=== PATIENT | female | born 1940 | race African-American/Black ===

== ENCOUNTER 2023-10-12 12:45 | Day surgery (SDC) | payer MEDICARE ==
[2023-10-10 11:27] VITALS: BMI 20.9
[~2023-10-12 12:45] MED LIST: CEFAZOLIN 1 GM VIAL ONE; Dexamethasone 4 mg/ml Vial ONE; Lidocaine 1% PF 5 ML VIAL ONE; Ondansetron PF 4 MG/2 ML Vial ONE; PROPOFOL 20 ML ONE; fentaNYL 50 mcg/mL 1 mL Vial ONE
[2023-10-12 13:28] LABS: Potassium 5.1 mmol/L (3.5-5.1)
[2023-10-12] MEDS ORDERED: Bupivacaine PF 0.5% 30 ML VIAL ONE (13:34)
== END 2023-10-12 15:25 | disposition home or self-care (01) ==
LOC: CSHSDC 12:45
PROVIDERS: ATTEND Podiatrist Foot & Ankle Surgery
PROC: 0SQP0ZZ Repair Right Toe Phalangeal Joint, Open Approach (ICD-10-PCS; principal; 2023-10-12)
DX: M20.41 Other hammer toe(s) (acquired), right foot (principal); I12.0 Hypertensive chronic kidney disease with stage 5 chronic kidney disease or end stage renal disease; N18.6 End stage renal disease; D63.1 Anemia in chronic kidney disease; E11.22 Type 2 diabetes mellitus with diabetic chronic kidney disease; Z99.2 Dependence on renal dialysis; E78.5 Hyperlipidemia, unspecified; M85.80 Other specified disorders of bone density and structure, unspecified site; Z79.82 Long term (current) use of aspirin; Z79.899 Other long term (current) drug therapy; Z90.49 Acquired absence of other specified parts of digestive tract; Z90.710 Acquired absence of both cervix and uterus; Z98.890 Other specified postprocedural states
CPT/HCPCS: 36415; 84132; J0665; J0690; J1100; J2405; J2704; J3010